=== PATIENT | male | born 1940 | race Caucasian/White ===

== ENCOUNTER → 2020-04-17 | Outpatient (CLI) | payer MEDICARE ==
[~2020-04-17] MED LIST: ALBU8.5H5 INH; BUDE10.22 INH; DRON400T PO; ENOX40SY4 SQ; ENOX80SY4 SQ; HYDR-3240 PO; LISI-167 PO; METO25TA35 PO; SOTA80TA18 PO; WARF2.5T32 PO-COUM; WARF2TAB PO; ZAFI20TA11 PO
== END | disposition home or self-care (01) ==
LOC: CFH 07:47
PROVIDERS: ATTEND Nurse Practitioner Family
DX: I48.92 Unspecified atrial flutter (principal); I42.9 Cardiomyopathy, unspecified; R06.02 Shortness of breath
CPT/HCPCS: 78452; 93017; A9502

== ENCOUNTER → 2020-04-27 | Outpatient (CLI) | payer MEDICARE | END | disposition home or self-care (01) | LOC: CVU 10:53 | PROVIDERS: ATTEND Nurse Practitioner Family | DX: I06.1 Rheumatic aortic insufficiency (principal); I10 Essential (primary) hypertension; I42.9 Cardiomyopathy, unspecified; I48.92 Unspecified atrial flutter; I06.8 Other rheumatic aortic valve diseases | CPT/HCPCS: 93306; 93356 ==